=== PATIENT | female | born 1950 | race Caucasian/White ===

== ENCOUNTER 2020-10-26 19:58 | Emergency (ER) | payer MEDICARE, OTHER, SELFPAY ==
[2020-10-26 20:08] VITALS: BP 176/81; PULSE 110; RESP 19; TEMP 36.7; O2SAT 99; BMI 26.5
--- NOTE | 2020-10-26 20:13 | DI.RAD.S_ITS ---
PROCEDURE: XR CHEST 1V INDICATIONS: chest pain TECHNIQUE: One view of the chest was acquired. COMPARISON: [facility], , CHEST 1 VIEW, 07/07/2017, 19:29. FINDINGS: Surgical changes and devices: None. Lungs and pleura: Lungs are clear. No pleural effusions or pneumothorax. Mediastinum: Mediastinal contours appear normal. Heart size is normal. Bones and chest wall: No suspicious bony lesions. Overlying soft tissues appear unremarkable. IMPRESSION: No acute disease. Dictated by: Evens Lin M.D. on 10/26/2020 at 21:12 Approved by: Evens Lin M.D. on 10/26/2020 at 21:12
[2020-10-26 20:33] VITALS: BP 187/89; PULSE 96; RESP 16
[2020-10-26 20:35] VITALS: PULSE 94; RESP 17; O2SAT 99
[2020-10-26 20:38] LABS: Add Manual Diff / Slide Review NO; Basophils Absolute Auto 0 /uL (0-100); Basophils Percent Auto 0.9 % (0-2); Eosinophils Absolute Auto 0 /uL (0-450); Eosinophils Percent Auto 0.4 % (2-4); Hematocrit 39.3 % (36-46); Lymphocytes Absolute Auto 1100 /uL (1100-4500); Lymphocytes Percent Auto 19.6 % (25-40); Mean Corpuscular HGB Conc 33.1 % (30-36); Mean Corpuscular Hemoglobin 29.8 PG (26-34); Mean Corpuscular Volume 90.2 fL (80-100); Monocytes Absolute Auto 600 /uL (0-900); Monocytes Percent Auto 9.9 % (3-14); Neutrophils Absolute Auto 4000 /uL (1500-7000); Neutrophils Percent Auto 69.2 % (50-75); Platelet Count 243 X10^3/uL (150-400); Red Blood Cell Count 4.36 X10^6/uL (4.0-5.2); Red Cell Distribution Width 13.1 % (11.6-14.8); White Blood Cell Count 5.8 X10^3/uL (4.5-11.0)
[2020-10-26 20:48] LABS: Prothrombin Time 11.3 SECONDS (10.1-12.7)
[2020-10-26 20:51] LABS: PTT Partial Thromboplastin Tim 31 SECONDS (26.4-36.2)
[2020-10-26 20:52] LABS: Alanine Aminotransferase 18 IU/L (<35); Albumin 4.2 g/dL (3.5-5.0); Albumin Globulin Ratio 1.4 (1.0-2.8); Alkaline Phosphatase 62 U/L (38-126); Aspartate Aminotransferase 25 IU/L (14-36); BUN Creatinine Ratio 12.5 (6-22); Bilirubin Total 0.5 mg/dL (0.2-1.3); Blood Urea Nitrogen 10 mg/dL (7-17); Calcium 9.5 mg/dL (8.4-10.2); Carbon Dioxide 27 mmol/L (22-32); Chloride 105 mmol/L (98-107); Creatine Kinase 76 U/L (30-135); Estimated Glomerular Filt Rate > 60.0 mL/min (>60); Globulin 2.9 g/dL (1.7-4.1); Glucose 146 mg/dL (80-110); HEMOLYSIS < 15 (0-50); Lipase 202 U/L (23-300); Sodium 137 mmol/L (137-145); Total Protein 7.1 g/dL (6.3-8.2)
[2020-10-26 20:57] LABS: Bacteria Urine None Seen; WBC Urine None Seen (0-5/HPF)
[2020-10-26 20:58] LABS: Appearance Urine UA CLEAR; Bilirubin Urine UA NEGATIVE (NEGATIVE); Color Urine UA YELLOW; Glucose Urine UA NEGATIVE (Negative); Ketones Urine UA NEGATIVE (NEGATIVE); Leukocyte Esterase Urine UA NEGATIVE (NEGATIVE); Nitrite Urine UA NEGATIVE (Negative); Occult Blood Urine UA TRACE-LYSED (Negative); Protein Urine UA NEGATIVE (Negative); Specific Gravity Urine UA <=1.005 (1.000-1.035); Urobilinogen Urine UA 0.2 E.U./dL (0.2)
[2020-10-26 21:00] VITALS: BP 162/75; PULSE 89; RESP 16; O2SAT 99
[2020-10-26 21:04] LABS: Culture Indicated Urine Cult Not Indicated; RBC Urine 0-1/HPF (0-5/HPF); Squamous Epithelial Cell Urine 0-1 /HPF (0-5/HPF)
[2020-10-26 21:04] LABS: Troponin I < 0.012 ng/mL (0.01-0.034)
[2020-10-26 21:31] VITALS: PULSE 84; O2SAT 93
[2020-10-26 22:00] VITALS: O2SAT 97
--- NOTE | 2020-10-26 22:12 | ED.ARRPALP ---
HPI - Arrhythmia/Palpitations General Chief Complaint: Arrhythmia/Palpitations Stated Complaint: shakey, rapid heart rate Time Seen by Provider: 10/26/20 20:33 Source: patient Mode of arrival: Ambulatory Limitations: no limitations History of Present Illness HPI narrative: Patient is a 70-year-old female here for evaluation of palpitations and feeling shaky. She states she was recently seen by her primary provider for the same symptoms that brought her in today. She was given antibiotics for presumed urinary tract infection. States that that did not help her symptoms so she was given a 2nd course of an antibiotic which she describes as Levaquin. She completed the course of this again without any improvement of her symptoms. Patient states these antibiotics or for a presumed urinary tract infection. She does describe off and on occasions which she feels like that her heart is racing. She also describes tingling and shaking in her upper extremities. She has right ear fullness. No cough. No sore throat. No chest pain. No shortness of breath. Related Data Home Medications Medication Instructions Recorded Confirmed omeprazole magnesium [Prilosec OTC] 20 mg PO QDAY #0 07/05/17 07/23/19 estradiol TOPICAL 07/23/19 07/23/19 progesterone micronized 100 mg 100 mg PO QAM 07/23/19 07/23/19 capsule Previous Rx's Medication Instructions Recorded estradiol 0.5 gram VAG DAILY #42.5 gram 07/23/19 Allergies Allergy/AdvReac Type Severity Reaction Status Date / Time acetaminophen [From TYLENOL] Allergy Unknown Unverified 07/23/19 13:56 codeine [CODEINE] Allergy Unknown Unverified 07/23/19 13:56 Penicillins [PENICILLINS] Allergy Unknown Unverified 07/23/19 13:56 SULFA Allergy Unknown Uncoded 07/23/19 13:56 Review of Systems Constitutional Constitutional: Denies fatigue and Denies headache(s) Comments: Shaking Eyes Eyes: Denies change in vision ENT Ears, Nose, Mouth, and Throat: Denies headache(s) Comments: Right ear pain Cardiovascular Cardiovascular: Denies chest pain, Reports rapid heart rate and Denies dyspnea Respiratory Respiratory: Denies cough and Denies dyspnea Gastrointestinal Gastrointestinal: Denies abdominal pain, Denies nausea and Denies vomiting Musculoskeletal Musculoskeletal: Denies arthralgias, Denies myalgias and Reports tingling Integumentary/Breasts Comments: Shaking, tingling Neurologic Neurologic: Denies headache(s) and Reports tingling Endocrine Endocrine: Denies fatigue Hematologic/Lymphatic Hematologic/Lymphatic: Denies easy bleeding and Denies easy bruising Allergic/Immunologic Allergic/Immunologic: Denies urticaria Patient History Medical History Action tremor Atypical chest pain Hypokalemia Palpitations Social History Smoking Status: Never smoker Smoking Status: Never smoker Substance Use Type: does not use Exam Initial Vital Signs Initial Vital Signs: Vital Signs Temperature 98.1 F 10/26/20 20:08 Pulse Rate 110 H 10/26/20 20:08 Respiratory Rate 19 10/26/20 20:08 Blood Pressure 176/81 H 10/26/20 20:08 Pulse Oximetry 99 10/26/20 20:08 Const General: cooperative and comfortable Limitations: mental status not altered HENMT Head: normal to inspection and normocephalic Ears: other (Tympanic membranes bulging bilaterally without erythema) Resp Effort & Inspection: normal respiratory effort Auscultation: clear to auscultation bilaterally Cardio Rate: regular rate Rhythm: regular rhythm GI Inspection: non-distended Palpation: soft Skin Lesions: no lesions Rashes: no rashes Neuro General: patient alert, patient awake and patient oriented x3 Cognition: normal cognition Speech: speech normal Extrem General: capillary refill normal Psych Appearance: grossly normal and well kempt Course Orders Ordered: ED Orders 10/26/20 20:13 XR chest 1V Stat EKG-12 Lead Stat 10/26/20 20:20 Complete Blood Count AUTO DIFF Stat Comprehensive Metabolic Panel Stat Lipase Stat Partial Thromboplastin Time Stat Prothrombin Time INR Stat Troponin & CK Cardiac Panel Stat 10/26/20 20:40 Urinalysis and Microscopic Stat Vital Signs Vital signs: Vital Signs - 8 hr 10/26/20 20:08 10/26/20 20:33 10/26/20 20:35 Temperature 98.1 F Pulse Rate 110 H 96 H 94 H Respiratory Rate 19 16 17 Blood Pressure 176/81 H 187/89 H Pulse Oximetry 99 99 10/26/20 21:00 10/26/20 21:31 10/26/20 22:00 Temperature Pulse Rate 89 84 Respiratory Rate 16 Blood Pressure 162/75 H Pulse Oximetry 99 93 97 MDM - Arrhythmia/Palpitations Lab Data Attestation: I reviewed the patient's lab results. Result diagrams: 10/26/20 20:20 10/26/20 20:20 Labs: Lab Results 10/26/20 10/26/20 10/26/20 Range/Units 20:20 20:20 20:20 WBC 5.8 (4.5-11.0) X10^3/uL RBC 4.36 (4.0-5.2) X10^6/uL Hgb 13.0 (12.0-16.0) g/dL Hct 39.3 (36-46) % MCV 90.2 (80-100) fL MCH 29.8 (26-34) PG MCHC 33.1 (30-36) % RDW 13.1 (11.6-14.8) % Plt Count 243 (150-400) X10^3/uL Neut % (Auto) 69.2 (50-75) % Lymph % (Auto) 19.6 L (25-40) % [place] % (Auto) 9.9 (3-14) % Eos % (Auto) 0.4 L (2-4) % Baso % (Auto) 0.9 (0-2) % Neut # (Auto) 4000 (0859-6104) /uL Lymph # (Auto) 1100 (9364-8016) /uL [place] # (Auto) 600 (0-900) /uL Eos # (Auto) 0 (0-450) /uL Baso # (Auto) 0 (0-100) /uL PT 11.3 (10.1-12.7) SECONDS INR 1.0 (0.9-1.3) APTT 31 (26.4-36.2) SECONDS Sodium 137 (137-145) mmol/L Potassium 4.0 (3.4-5.1) mmol/L Chloride 105 (98-107) mmol/L Carbon Dioxide 27 (22-32) mmol/L BUN 10 (7-17) mg/dL Creatinine 0.80 (0.52-1.04) mg/dL Estimated GFR > 60.0 (>60) mL/min BUN/Creatinine Ratio 12.5 (6-22) Glucose 146 H (80-110) mg/dL Calcium 9.5 (8.4-10.2) mg/dL Total Bilirubin 0.5 (0.2-1.3) mg/dL AST 25 (14-36) IU/L ALT 18 (<35) IU/L Alkaline Phosphatase 62 (38-126) U/L Total Creatine Kinase 76 (30-135) U/L CK-MB (CK-2) TNP CK-MB (CK-2) Rel Index TNP Troponin I < 0.012 (0.01-0.034) ng/mL Total Protein 7.1 (6.3-8.2) g/dL Albumin 4.2 (3.5-5.0) g/dL Globulin 2.9 (1.7-4.1) g/dL Albumin/Globulin Ratio 1.4 (1.0-2.8) Lipase 202 (23-300) U/L Urine Color Urine Appearance Urine pH (4.5-8.0) Ur Specific [place] (1.000-1.035) Urine Protein (Negative) Urine Glucose (UA) (Negative) g/dL Urine Ketones (NEGATIVE) Urine Occult Blood (Negative) Urine Nitrate (Negative) Urine Bilirubin (NEGATIVE) Urine Urobilinogen (0.2) E.U./dL Ur Leukocyte Esterase (NEGATIVE) Urine RBC (0-5/HPF) Urine WBC (0-5/HPF) Ur Squamous Epith Cells (0-5/HPF) Urine Bacteria (None) Ur Culture Indicated? 10/26/20 Range/Units 20:40 WBC (4.5-11.0) X10^3/uL RBC (4.0-5.2) X10^6/uL Hgb (12.0-16.0) g/dL Hct (36-46) % MCV (80-100) fL MCH (26-34) PG MCHC (30-36) % RDW (11.6-14.8) % Plt Count (150-400) X10^3/uL Neut % (Auto) (50-75) % Lymph % (Auto) (25-40) % [place] % (Auto) (3-14) % Eos % (Auto) (2-4) % Baso % (Auto) (0-2) % Neut # (Auto) (0824-0147) /uL Lymph # (Auto) (1366-8514) /uL [place] # (Auto) (0-900) /uL Eos # (Auto) (0-450) /uL Baso # (Auto) (0-100) /uL PT (10.1-12.7) SECONDS INR (0.9-1.3) APTT (26.4-36.2) SECONDS Sodium (137-145) mmol/L Potassium (3.4-5.1) mmol/L Chloride (98-107) mmol/L Carbon Dioxide (22-32) mmol/L BUN (7-17) mg/dL Creatinine (0.52-1.04) mg/dL Estimated GFR (>60) mL/min BUN/Creatinine Ratio (6-22) Glucose (80-110) mg/dL Calcium (8.4-10.2) mg/dL Total Bilirubin (0.2-1.3) mg/dL AST (14-36) IU/L ALT (<35) IU/L Alkaline Phosphatase (38-126) U/L Total Creatine Kinase (30-135) U/L CK-MB (CK-2) CK-MB (CK-2) Rel Index Troponin I (0.01-0.034) ng/mL Total Protein (6.3-8.2) g/dL Albumin (3.5-5.0) g/dL Globulin (1.7-4.1) g/dL Albumin/Globulin Ratio (1.0-2.8) Lipase (23-300) U/L Urine Color Yellow Urine Appearance Clear Urine pH 6.0 (4.5-8.0) Ur Specific [place] <=1.005 (1.000-1.035) Urine Protein Negative (Negative) Urine Glucose (UA) Negative (Negative) g/dL Urine Ketones Negative (NEGATIVE) Urine Occult Blood Trace-lysed (Negative) Urine Nitrate Negative (Negative) Urine Bilirubin Negative (NEGATIVE) Urine Urobilinogen 0.2 (0.2) E.U./dL Ur Leukocyte Esterase Negative (NEGATIVE) Urine RBC 0-1/hpf (0-5/HPF) Urine WBC None seen (0-5/HPF) Ur Squamous Epith Cells 0-1 /hpf (0-5/HPF) Urine Bacteria None seen (None) Ur Culture Indicated? Cult not indicated Imaging Data Chest x-ray: Radiologist's Impresson: [id number] [place] [id number] ReportSigned Patient: Cynthia Samuel DMR#: [id number]: [id number]:[id number]/Sex: 70 / FDate of Service: 10/26/20Loc: EDAccession Number: [id number] Procedure: XR chest 1V Ordering Provider: Shlomo Felix D.O. PROCEDURE: XR CHEST 1V INDICATIONS: chest pain TECHNIQUE: One view of the chest was acquired. COMPARISON: [facility], CHEST 1 VIEW, 07/07/2017, 19:29. FINDINGS: Surgical changes and devices: None. Lungs and pleura: Lungs are clear. No pleural effusions or pneumothorax. Mediastinum: Mediastinal contours appear normal. Heart size is normal. Bones and chest wall: No suspicious bony lesions. Overlying soft tissues appear unremarkable. IMPRESSION: No acute disease. Dictated by: Evens Lin M.D. on 10/26/2020 at 21:12 Approved by: Evens Lin M.D. on 10/26/2020 at 21:12 ECG Data Attestation: I personally reviewed and interpreted this ECG as follows: Prior ECG tracings: not available for review Interpretation: Sinus rhythm Ventricular rate 99 Normal axis Normal QRS Normal QTC Nonspecific ST T wave changes MDM Narrative Medical decision making narrative: Labs are unremarkable, chest x-ray is unremarkable, EKG is unremarkable. Patient has been treated with 2 different antibiotics for what the patient describes urinary tract infection. The 2nd antibiotic which the patient states his Levaquin would treat any potential pneumonia or bacterial upper respiratory infection. She does have bilateral bulging tympanic membranes without any signs of erythema. We did discuss the use of antihistamines to help with this. I feel that we should hold on any further antibiotics for now as I do not have a specific reason for a bacterial infection. Had a discussion with her regarding her palpitations. She states she has not talked with her primary doctor about a Holter monitor. It is somewhat difficult to obtain from the patient with her not the palpitations is related to some of her other symptoms or not. Patient is going to contact her primary doctor to discuss this. She did have multiple labs drawn during her last visit. Patient was concerned about her potassium which was unremarkable today. They are working her up further issues to include Sjogren's syndrome because she is having dry eyes and dry mouth. I feel that we can hold on further workup today from the emergency department. Do not feel there is an emergent condition given the workup done thus far and her history and physical exam. She was given return precautions and follow-up instructions. She expressed understanding and agreement. Discharge Plan Departure Patient Disposition: Home Clinical Impression: Palpitations, Congestion of nasal sinus Instructions: DI for Arrhythmias Activity Restrictions/Additional Instructions: I recommend that you start taking a antihistamine such as Claritin or Amberly or Zyrtec. You can purchase these [id number]. I also recommend that you talk with her primary doctor at your next follow-up visit about a Holter monitor. Return to the emergency department for any new or worsening symptoms Prescriptions: No Action omeprazole magnesium [Prilosec OTC] 20 MG tablet,delayed release (DR/EC) 20 mg PO QDAY Qty: 0 RF: 0 estradiol topical RF: 0 progesterone micronized [Prometrium] 100 mg capsule 100 mg PO QAM RF: 0 estradiol [Estrace] 0.01 % (0.1 mg/gram) cream 0.5 gram VAG DAILY Qty: 42.5 RF: 3 Referrals: Charissa Morales MD [Primary Care Provider] -
== END 2020-10-26 22:30 | disposition home or self-care (01) ==
PROVIDERS: Emergency Provider Emergency Medicine; PCP Family Medicine
DX: R00.2 Palpitations (principal); R07.9 Chest pain, unspecified; R09.81 Nasal congestion
CPT/HCPCS: 36415; 71045; 80053; 81001; 82550; 83690; 84484; 85025; 85610; 85730; 93005; 99283; 99284

== ENCOUNTER → 2020-11-10 09:31 | Outpatient (CLI) | payer MEDICARE, OTHER, SELFPAY ==
--- NOTE | 2020-12-01 10:28 | PM.CARDMON.1 ---
[employer] Report Referral & Results Date Patient Seen: 11/10/20 Requesting provider: Charissa Morales Indication: Palpitations Duration of monitoring (days): 7 Diary information: There was 1 patient triggered event. This event was associated with sinus rhythm only Data: Minimum heart rate identified was 43 beats per minute at 06:58 on 11/13/2020 Maximum sinus heart rate was 125 beats per minute at 08:43 on 11/16/2020 Maximum overall heart rate was 150 beats per minute at 04:35 on 11/16/2020 during a run of SVT Less than 1% of identified beats rather ventricular supraventricular ectopic in origin 3 runs of SVT were identified the fastest being 13 beats at a rate of 150 beats per minute. This was also the longest run. Impression: 7 day patient monitor showing rare PVCs and PACs and rare very very brief runs of SVT as above Clinical correlation suggested
== END ==
PROVIDERS: PCP Family Medicine; Referring Provider Family Medicine; Visit Provider Family Medicine
DX: R00.2 Palpitations (principal)
CPT/HCPCS: 93242; 93244

== ENCOUNTER 2022-02-21 11:36 | Emergency (ER) | payer MEDICARE, OTHER, SELFPAY ==
[2022-02-21 11:41] VITALS: BP 180/81; PULSE 88; RESP 18; TEMP 36.7; O2SAT 99; BMI 23.2
--- NOTE | 2022-02-21 11:52 | DI.RAD.S_ITS ---
PROCEDURE: XR CHEST 1V INDICATIONS: chest pain TECHNIQUE: One view of the chest was acquired. COMPARISON: [facility], , CHEST 1 VIEW, 07/07/2017, 19:29. [facility], , XR CHEST 1V, 10/26/2020, 20:34. FINDINGS: Surgical changes and devices: None. Lungs and pleura: Lungs are clear. No pleural effusions or pneumothorax. Mediastinum: The cardiac contours are within normal limits. The aorta demonstrates calcification and tortuosity. Bones and chest wall: No suspicious bony lesions. Age-appropriate bony degenerative changes are seen. Mild levoconvex scoliotic curvature is noted. Overlying soft tissues appear unremarkable. IMPRESSION: Unremarkable portable chest study for age. Dictated by: John Meyer M.D. on 02/21/2022 at 11:21 Approved by: John Meyer M.D. on 02/21/2022 at 11:22
[2022-02-21 12:26] LABS: Add Manual Diff / Slide Review NO; Basophils Absolute Auto 100 /uL (0-100); Basophils Percent Auto 1.2 % (0-2); Eosinophils Absolute Auto 300 /uL (0-450); Eosinophils Percent Auto 4.1 % (2-4); Hematocrit 37.8 % (36-46); Hemoglobin 12.8 g/dL (12.0-16.0); Lymphocytes Absolute Auto 700 /uL (1100-4500); Lymphocytes Percent Auto 10.4 % (25-40); Mean Corpuscular HGB Conc 33.9 % (30-36); Mean Corpuscular Hemoglobin 30.7 PG (26-34); Mean Corpuscular Volume 90.5 fL (80-100); Monocytes Absolute Auto 500 /uL (0-900); Monocytes Percent Auto 8.1 % (3-14); Neutrophils Absolute Auto 4900 /uL (1500-7000); Neutrophils Percent Auto 76.2 % (50-75); Platelet Count 244 X10^3/uL (150-400); Red Blood Cell Count 4.18 X10^6/uL (4.0-5.2); Red Cell Distribution Width 12.9 % (11.6-14.8); White Blood Cell Count 6.5 X10^3/uL (4.5-11.0)
[2022-02-21 12:30] LABS: Alanine Aminotransferase 13 IU/L (<35); Albumin 4.1 g/dL (3.5-5.0); Albumin Globulin Ratio 1.5 (1.0-2.8); Alkaline Phosphatase 54 U/L (38-126); Aspartate Aminotransferase 23 IU/L (14-36); Bilirubin Total 0.5 mg/dL (0.2-1.3); Blood Urea Nitrogen 14 mg/dL (7-17); Calcium 8.9 mg/dL (8.4-10.2); Carbon Dioxide 22 mmol/L (22-32); Chloride 105 mmol/L (98-107); Creatine Kinase 44 U/L (30-135); Estimated Glomerular Filt Rate > 60 mL/min (>60); Globulin 2.8 g/dL (1.7-4.1); Glucose 124 mg/dL (80-110); HEMOLYSIS < 15 (0-50); Lipase 234 U/L (23-300); Potassium 4.2 mmol/L (3.4-5.1); Sodium 136 mmol/L (137-145); Total Protein 6.9 g/dL (6.3-8.2)
[2022-02-21 12:41] LABS: Troponin I < 0.012 ng/mL (0.01-0.034)
--- NOTE | 2022-02-21 12:59 | ED_ITS ---
HPI - Chest Pain <Boo Gill PA-C - Last Filed: 02/21/22 16:58> General Chief Complaint: Chest Pain Stated Complaint: Chest pain/back pain, tingling in lt arm Time Seen by Provider: 02/21/22 12:09 Mode of arrival: Ambulatory History of Present Illness HPI narrative: 71-year-old female presents to the ED for 1 day of right-sided upper back pain that radiates to the left arm. Patient endorses some tingling in the left arm. Patient states that the pain feels more like a pinched nerve in the back. Patient denies fevers, chills, shortness of breath, chest pain, cough, nasal congestion, nausea, vomiting, lightheadedness, dizziness, syncope. Patient does endorse some intermittent right lower quadrant cramping that has been ongoing for 2 years. Patient states that she has been diagnosed with IBS. Patient also endorses increased belching since this morning, endorses history of GERD, takes Prilosec daily, took a dose of Pepcid AC this morning. States that the abdominal cramping causes her to feel sweaty and had palpitations. Patient was started on metoprolol last week by her PCP for some intermittent SVTs. Related Data Home Medications Medication Instructions Recorded Confirmed omeprazole magnesium 20 mg 20 mg PO QDAY #0 07/05/17 07/23/19 tablet,delayed release (Prilosec OTC) estradiol [Divigel] TOPICAL 07/23/19 07/23/19 progesterone micronized 100 mg 100 mg PO QAM 07/23/19 07/23/19 capsule (Prometrium) Previous Rx's Medication Instructions Recorded estradiol (Estrace) 0.5 gram VAG DAILY #42.5 gram 07/23/19 cyclobenzaprine 10 mg tablet 10 mg PO TID PRN #20 tab 02/21/22 hyoscyamine sulfate 0.125 mg 0.25 mg PO TID-QID PRN #30 tab 02/21/22 tablet (Levsin) Allergies Allergy/AdvReac Type Severity Reaction Status Date / Time acetaminophen [From TYLENOL] Allergy Unknown Verified 02/21/22 13:05 codeine [CODEINE] Allergy Unknown Verified 02/21/22 13:05 Penicillins [PENICILLINS] Allergy Unknown Verified 02/21/22 13:05 SULFA Allergy Unknown Uncoded 02/21/22 13:05 Review of Systems <Boo Gill PA-C - Last Filed: 02/21/22 16:58> Review of Systems ROS Unobtainable: All systems reviewed & are unremarkable except as noted in HPI and below Constitutional Constitutional: Denies chills, Denies fatigue, Denies fever(s), Denies frequent falls, Denies lethargy and Denies weakness Eyes Eyes: Denies change in vision, Denies eye discharge, Denies irritation and Denies loss of vision ENT Ears, Nose, Mouth, and Throat: Denies change in voice, Denies dizziness, Denies neck pain, Denies sore throat and Denies throat swelling Cardiovascular Cardiovascular: Denies chest pain, Denies irregular heart rhythm, Denies lightheadedness, Denies palpitations, Denies dyspnea, Denies dyspnea on exertion and Denies orthopnea Respiratory Respiratory: Denies cough, Denies dyspnea, Denies dyspnea on exertion and Denies wheezing Gastrointestinal Gastrointestinal: Reports belching, Denies change in bowel habits, Reports cramping (RLQ), Denies diarrhea, Denies nausea and Denies vomiting Genitourinary Genitourinary: Denies hematuria, Denies flank pain, Denies urinary incontinence and Denies urinary urgency Musculoskeletal Musculoskeletal: Reports back pain, Denies muscle weakness, Denies neck pain, Denies numbness, Reports radiating pain into limb (L arm) and Denies tingling Integumentary/Breasts Skin/Breast: Denies pruritus, Denies erythema, Denies rash and Denies wounds Neurologic Neurologic: Denies behavioral changes, Denies confusion, Denies dizziness, Denies frequent falls, Denies loss of vision, Denies numbness, Denies tingling and Denies weakness Psychiatric Psychiatric: Denies anxiety, Denies behavioral changes, Denies confusion, Denies depression, Denies homicidal ideation and Denies suicidal ideation Endocrine Endocrine: Denies fatigue, Denies flushing and Denies palpitations Hematologic/Lymphatic Hematologic/Lymphatic: Denies easy bruising Allergic/Immunologic Allergic/Immunologic: Denies urticaria, Denies throat swelling and Denies wheezi ng Patient History <Boo Gill PA-C - Last Filed: 02/21/22 16:58> Medical History Action tremor Atypical chest pain Hypokalemia Palpitations Social History Smoking Status: Never smoker Smoking Status: Never smoker Substance Use Type: does not use Exam <Boo Gill PA-C - Last Filed: 02/21/22 16:58> Initial Vital Signs Initial Vital Signs: Vital Signs Temperature 98.0 F 02/21/22 11:41 Pulse Rate 88 02/21/22 11:41 Respiratory Rate 18 02/21/22 11:41 Blood Pressure 180/81 H 02/21/22 11:41 Pulse Oximetry 99 02/21/22 11:41 Const General: cooperative, healthy appearing and comfortable HENMT Head: normal to inspection Eyes General: Yes appearance normal, both eyes and all related structures Neck Neck: normal visual inspection Chest Chest: normal inspection of the chest Resp Effort & Inspection: normal respiratory effort Auscultation: clear to auscultation bilaterally Cardio Rate: regular rate Rhythm: regular rhythm GI Inspection: normal to inspection Other: Abdomen is soft, nondistended. Mild tenderness to palpation in the right lower quadrant, however distractible. General: No CVA tenderness Back/Spine/Pelvis Back: normal to inspection and back tenderness (Paraspinal tenderness to palpation of the right mid thoracic region) Other: No midline tenderness to palpation Skin General: no rashes or lesions noted Neuro General: patient alert, patient awake and patient oriented x3 Extrem General: normal to inspection, full ROM and capillary refill normal Psych Appearance: grossly normal Mental Status: mental status grossly normal Affect: anxious affect <Rishi Hu DO - Last Filed: 02/24/22 00:42> Initial Vital Signs Initial Vital Signs: Vital Signs Temperature 98.0 F 02/21/22 11:41 Pulse Rate 88 02/21/22 11:41 Respiratory Rate 18 02/21/22 11:41 Blood Pressure 180/81 H 02/21/22 11:41 Pulse Oximetry 99 02/21/22 11:41 Course <Boo Gill PA-C - Last Filed: 02/21/22 16:58> Orders Ordered: Discontinued Medications Al Hydrox/Mg Hydrox/Simethicone 20 ml/ Lidocaine HCl 15 ml 0 ml PO NOW ONE Stop: 02/21/22 12:55 Last Admin: 02/21/22 13:20 Dose: 35 ml Documented by: [facility] Cyclobenzaprine HCl (Cyclobenzaprine 10 Mg Tablet) 10 mg PO NOW ONE Stop: 02/21/22 12:56 Last Admin: 02/21/22 13:21 Dose: 5 mg Documented by: [facility] Hyoscyamine (Hyoscyamine 0.125 Mg Tablet) 0.125 mg PO NOW ONE Stop: 02/21/22 12:55 Last Admin: 02/21/22 13:20 Dose: 0.125 mg Documented by: [facility] Lidocaine (Lidocaine Patch 1 Each Adh..Patch) 1 each TOP NOW ONE Stop: 02/21/22 12:57 Last Admin: 02/21/22 13:21 Dose: 1 each Documented by: [facility] Vital Signs Vital signs: Vital Signs - 8 hr 02/21/22 11:41 02/21/22 13:54 02/21/22 14:33 Temperature 98.0 F Pulse Rate 88 75 Respiratory Rate 18 16 Blood Pressure 180/81 H 155/72 H Pulse Oximetry 99 99 98 02/21/22 14:34 02/21/22 15:00 Temperature Pulse Rate 76 75 Respiratory Rate 24 Blood Pressure 171/79 H 145/78 H Pulse Oximetry 100 98 <Rishi Hu, DO - Last Filed: 02/24/22 00:42> Orders Ordered: Discontinued Medications Al Hydrox/Mg Hydrox/Simethicone 20 ml/ Lidocaine HCl 15 ml 0 ml PO NOW ONE Stop: 02/21/22 12:55 Last Admin: 02/21/22 13:20 Dose: 35 ml Documented by: [facility] Cyclobenzaprine HCl (Cyclobenzaprine 10 Mg Tablet) 10 mg PO NOW ONE Stop: 02/21/22 12:56 Last Admin: 02/21/22 13:21 Dose: 5 mg Documented by: [facility] Hyoscyamine (Hyoscyamine 0.125 Mg Tablet) 0.125 mg PO NOW ONE Stop: 02/21/22 12:55 Last Admin: 02/21/22 13:20 Dose: 0.125 mg Documented by: [facility] Lidocaine (Lidocaine Patch 1 Each Adh..Patch) 1 each TOP NOW ONE Stop: 02/21/22 12:57 Last Admin: 02/21/22 13:21 Dose: 1 each Documented by: [facility] Vital Signs Vital signs: Vital Signs - 8 hr 02/21/22 11:41 02/21/22 13:54 02/21/22 14:33 Temperature 98.0 F Pulse Rate 88 75 Respiratory Rate 18 16 Blood Pressure 180/81 H 155/72 H Pulse Oximetry 99 99 98 02/21/22 14:34 02/21/22 15:00 Temperature Pulse Rate 76 75 Respiratory Rate 24 Blood Pressure 171/79 H 145/78 H Pulse Oximetry 100 98 MDM - Chest Pain <Boo Gill PA-C - Last Filed: 02/21/22 16:58> Medical Records Data Attestation: I reviewed the patient's medical records. Lab Data Attestation: I reviewed the patient's lab results. Lab results narrative: Labs within normal limits Result diagrams: 02/21/22 12:09 02/21/22 12:09 Labs: Lab Results 02/21/22 02/21/22 Range/Units 12:09 12:09 WBC 6.5 (4.5-11.0) X10^3/uL RBC 4.18 (4.0-5.2) X10^6/uL Hgb 12.8 (12.0-16.0) g/dL Hct 37.8 (36-46) % MCV 90.5 (80-100) fL MCH 30.7 (26-34) PG MCHC 33.9 (30-36) % RDW 12.9 (11.6-14.8) % Plt Count 244 (150-400) X10^3/uL Neut % (Auto) 76.2 H (50-75) % Lymph % (Auto) 10.4 L (25-40) % [place] % (Auto) 8.1 (3-14) % Eos % (Auto) 4.1 H (2-4) % Baso % (Auto) 1.2 (0-2) % Neut # (Auto) 4900 (6984-2618) /uL Lymph # (Auto) 700 L (9559-4384) /uL [place] # (Auto) 500 (0-900) /uL Eos # (Auto) 300 (0-450) /uL Baso # (Auto) 100 (0-100) /uL Sodium 136 L (137-145) mmol/L Potassium 4.2 (3.4-5.1) mmol/L Chloride 105 (98-107) mmol/L Carbon Dioxide 22 (22-32) mmol/L BUN 14 (7-17) mg/dL Creatinine 0.70 (0.52-1.04) mg/dL Estimated GFR > 60 (>60) mL/min BUN/Creatinine Ratio 20.0 (6-22) Glucose 124 H (80-110) mg/dL Calcium 8.9 (8.4-10.2) mg/dL Magnesium 2.0 (1.6-2.3) mg/dL Total Bilirubin 0.5 (0.2-1.3) mg/dL AST 23 (14-36) IU/L ALT 13 (<35) IU/L Alkaline Phosphatase 54 (38-126) U/L Total Creatine Kinase 44 (30-135) U/L CK-MB (CK-2) TNP CK-MB (CK-2) Rel Index TNP Troponin I < 0.012 (0.01-0.034) ng/mL Total Protein 6.9 (6.3-8.2) g/dL Albumin 4.1 (3.5-5.0) g/dL Globulin 2.8 (1.7-4.1) g/dL Albumin/Globulin Ratio 1.5 (1.0-2.8) Lipase 234 (23-300) U/L Imaging Data Chest x-ray: Radiologist's Impression: PROCEDURE:? XR CHEST 1V ? INDICATIONS:? chest pain ? TECHNIQUE:? One view of the chest was acquired.? ? COMPARISON:? [facility], CHEST 1 VIEW, 07/07/2017, 19:29.? [facility], XR CHEST 1V, 10/26/2020, 20:34. ? FINDINGS:? ? Surgical changes and devices:? None.? ? Lungs and pleura:? Lungs are clear.? No pleural effusions or pneumothorax.? ? Mediastinum:? The cardiac contours are within normal limits. The aorta demonstrates calcification and tortuosity. ? Bones and chest wall:? No suspicious bony lesions.? Age-appropriate bony degenerative changes are seen.? Mild levoconvex scoliotic curvature is noted. ? ? Overlying soft tissues appear unremarkable.? IMPRESSION:? Unremarkable portable chest study for age. ? ? Dictated by: John Meyer M.D. on 02/21/2022 at 11:21 ? ? Approved by: John Meyer M.D. on 02/21/2022 at 11:22 ? ECG Data Interpretation: Normal sinus rhythm, nonspecific T-wave abnormality in V3, no acute ST changes, no axis deviation MDM Narrative Medical decision making narrative: 71-year-old female presents to the ED for 1 day of right-sided upper back pain that radiates to the left arm. Concern for ACS versus musculoskeletal sprain/strain versus pneumonia versus versus IBS. Will obtain labs, troponin, EKG, chest x-ray. Will give Flexeril, GI cocktail, Levsin, lidocaine patch for symptoms. Will re-evaluate. Labs, chest x-ray, EKG, CT abdomen pelvis did not show any acute findings. There were some incidental findings including a thickened endometrium, possible cervical mass. Discussed findings with patient, suggest follow-up with OBGYN for a pelvic ultrasound. Patient's symptoms improved with medications. return precautions discussed with patient. Patient verbalized understanding. <Rishi Hu, - Last Filed: 02/24/22 00:42> Lab Data Labs: Lab Results 02/21/22 02/21/22 Range/Units 12:09 12:09 WBC 6.5 (4.5-11.0) X10^3/uL RBC 4.18 (4.0-5.2) X10^6/uL Hgb 12.8 (12.0-16.0) g/dL Hct 37.8 (36-46) % MCV 90.5 (80-100) fL MCH 30.7 (26-34) PG MCHC 33.9 (30-36) % RDW 12.9 (11.6-14.8) % Plt Count 244 (150-400) X10^3/uL Neut % (Auto) 76.2 H (50-75) % Lymph % (Auto) 10.4 L (25-40) % [place] % (Auto) 8.1 (3-14) % Eos % (Auto) 4.1 H (2-4) % Baso % (Auto) 1.2 (0-2) % Neut # (Auto) 4900 (3722-5527) /uL Lymph # (Auto) 700 L (6994-7344) /uL [place] # (Auto) 500 (0-900) /uL Eos # (Auto) 300 (0-450) /uL Baso # (Auto) 100 (0-100) /uL Sodium 136 L (137-145) mmol/L Potassium 4.2 (3.4-5.1) mmol/L Chloride 105 (98-107) mmol/L Carbon Dioxide 22 (22-32) mmol/L BUN 14 (7-17) mg/dL Creatinine 0.70 (0.52-1.04) mg/dL Estimated GFR > 60 (>60) mL/min BUN/Creatinine Ratio 20.0 (6-22) Glucose 124 H (80-110) mg/dL Calcium 8.9 (8.4-10.2) mg/dL Magnesium 2.0 (1.6-2.3) mg/dL Total Bilirubin 0.5 (0.2-1.3) mg/dL AST 23 (14-36) IU/L ALT 13 (<35) IU/L Alkaline Phosphatase 54 (38-126) U/L Total Creatine Kinase 44 (30-135) U/L CK-MB (CK-2) TNP CK-MB (CK-2) Rel Index TNP Troponin I < 0.012 (0.01-0.034) ng/mL Total Protein 6.9 (6.3-8.2) g/dL Albumin 4.1 (3.5-5.0) g/dL Globulin 2.8 (1.7-4.1) g/dL Albumin/Globulin Ratio 1.5 (1.0-2.8) Lipase 234 (23-300) U/L Discharge Plan Departure Patient Disposition: Home Clinical Impression: Back pain Instructions: Thoracic Back Pain Activity Restrictions/Additional Instructions: You were evaluated in the ED today for left-sided upper back pain, right-sided abdominal cramping. Your labs, CT abdomen pelvis did not show any acute findings. Your back pain is likely due to a musculoskeletal sprain/strain. Your symptoms improved with Flexeril, lidocaine patch. There were some incidental findings with a possible cervical mass and endometrial thickening of the uterus that warrant a follow-up with an OBGYN for a ultrasound. However, your symptoms today are unlikely to be caused by those findings. Please return to the ED if you have worsening symptoms, chest pain, shortness of breath, worsening abdominal pain. Prescriptions: New hyoscyamine sulfate [Levsin] 0.125 mg tablet 0.25 mg PO TID-QID PRN (Reason: dyspepsia) Qty: 30 0RF cyclobenzaprine 10 mg tablet 10 mg PO TID PRN (Reason: muscle spasm) Qty: 20 0RF No Action omeprazole magnesium [Prilosec OTC] 20 MG tablet,delayed release (DR/EC) 20 mg PO QDAY Qty: 0 0RF estradiol topical 0RF progesterone micronized [Prometrium] 100 mg capsule 100 mg PO QAM 0RF estradiol [Estrace] 0.01 % (0.1 mg/gram) cream 0.5 gram VAG DAILY Qty: 42.5 3RF Rx Instructions: 0.5gm daily for 14 days and then twice a weeek Referrals: Adrian Amaral MD [Primary Care Provider] - <Rishi Hu DO - Last Filed: 02/24/22 00:42> Cosign ED Attending Ariaature Attestation: I was immediately available in the department for consultation. Documentation has been reviewed. I agree with assessment and plan.
[2022-02-21] MEDS: MAG HYDROX/ALUMINUM/SIMETH SUS 20 ML, LIDOCAINE VISCOUS 2% 15 ML PO (13:20)
[2022-02-21] MEDS: HYOSCYAMINE 0.125 MG TABLET PO (13:20)
[2022-02-21] MEDS: LIDOCAINE PATCH 1 EACH ADH..PATCH TOP (13:21)
[2022-02-21] MEDS: CYCLOBENZAPRINE 10 MG TABLET PO (13:21)
[2022-02-21 13:54] VITALS: BP 155/72; PULSE 75; RESP 16; O2SAT 99
--- NOTE | 2022-02-21 14:01 | DI.CT.S_ITS ---
PROCEDURE: CT ABDOMEN PELVIS W CON INDICATIONS: RLQ pain TECHNIQUE: After the administration of intravenous contrast, axial sections acquired from the lung bases to the pubic symphysis. Coronal and sagittal reformats were performed. For radiation dose reduction, the following was used: automated exposure control, adjustment of mA and/or kV according to patient size. COMPARISON: None. FINDINGS: Image quality: Excellent. Lung bases: Unremarkable. Heart: No significant findings. ABDOMEN: Liver: Unremarkable. Gallbladder: The gallbladder is not visualized and may be surgically absent. Biliary ducts: Unremarkable. Pancreas: Unremarkable. Spleen: Unremarkable. Adrenal Glands: Unremarkable. Kidneys and Ureters: Unremarkable. Stomach and Bowel: Stomach, small bowel loops, and colon are unremarkable. The appendix is thin walled and gas filled. Peritoneum: No abnormal intraperitoneal fluid. No free air. Ventral Wall: No hernias. Abdominal Nodes: No retroperitoneal or mesenteric adenopathy by size criteria. Vessels: Aorta and inferior vena cava are normal in size. PELVIS: Pelvic Organs: Multiple enhancing fibroids are noted within the uterine fundus. The endometrium appears thickened measuring up to 10 mm in diameter which is greater than expected in a postmenopausal female. There is a questionable cervical mass which is incompletely characterized on CT. The ovaries are grossly unremarkable. Bladder: Unremarkable. Pelvic Nodes: No enlarged lymph nodes. Miscellaneous: No hernias are seen. Bones: Unremarkable. IMPRESSION: 1. No acute intra-abdominal findings. Normal appendix. 2. Fibroid uterus and questionable cervical mass which is incompletely characterized on CT. Differential considerations include uterine prolapse. If further characterization is warranted, pelvic ultrasound is recommended. 3. Questionable endometrial thickening measuring up to 10 mm in diameter on sagittal view. Pelvic ultrasound recommended to further characterize this finding. Dictated by: Trudy Koo M.D. on 02/21/2022 at 14:38 Approved by: Trudy Koo M.D. on 02/21/2022 at 14:44
[2022-02-21 14:33] VITALS: O2SAT 98
[2022-02-21 14:34] VITALS: BP 171/79; PULSE 76; O2SAT 100
[2022-02-21 15:00] VITALS: BP 145/78; PULSE 75; RESP 24; O2SAT 98
== END 2022-02-21 15:10 | disposition home or self-care (01) ==
PROVIDERS: Emergency Medicine; Emergency Provider Student in an Organized Health Care Education/Training Program; PCP Family Medicine
DX: M54.6 Pain in thoracic spine (principal)
CPT/HCPCS: 36415; 71045; 74177; 80053; 82550; 83690; 83735; 84484; 85025; 93005; 99284; Q9967

== ENCOUNTER → 2023-11-14 14:20 | Outpatient (ROUT) | payer MEDICARE, OTHER, SELFPAY ==
[2023-11-14 14:47] LABS: Appearance Urine UA CLEAR; Bilirubin Urine UA NEGATIVE (NEGATIVE); Color Urine UA YELLOW; Glucose Urine UA NEGATIVE (Negative); Ketones Urine UA NEGATIVE (NEGATIVE); Leukocyte Esterase Urine UA NEGATIVE (NEGATIVE); Nitrite Urine UA NEGATIVE (Negative); Occult Blood Urine UA NEGATIVE (Negative); Protein Urine UA NEGATIVE (Negative); Urobilinogen Urine UA 0.2 E.U./dL (0.2)
[2023-11-14 14:58] LABS: Bacteria Urine None Seen; Culture Indicated Urine Cult Not Indicated; RBC Urine 0-1/HPF (0-5/HPF); Squamous Epithelial Cell Urine 0-1 /HPF (0-5/HPF); WBC Urine None Seen (0-5/HPF)
== END ==
PROVIDERS: PCP Family Medicine; Visit Provider Registered Nurse
DX: N30.00 Acute cystitis without hematuria (principal)
CPT/HCPCS: 81001

== ENCOUNTER → 2024-02-18 14:42 | Outpatient (CLI) | payer MEDICARE, OTHER, SELFPAY ==
--- NOTE | 2024-02-18 14:45 | DI.US.S_ITS ---
PROCEDURE: US PELVIC COMPLETE INDICATIONS: ONE EPISODE POST MENOPAUSAL SPOTTING TECHNIQUE: Real-time scanning was performed of the pelvic organs, with image documentation. Additional endovaginal scanning was necessary due to incomplete visualization of the adnexal and endometrial structures by transabdominal scanning. COMPARISON: [facility], CT, CT ABDOMEN PELVIS W CON, 02/21/2022, 14:10. FINDINGS: Uterus: Uterus is retroverted and normal in size at 7.8 x 6.9 x 4.6 cm. The myometrium is homogeneous. The endometrium measures 9 mm combined thickness. Right anterior intramural fibroid measuring 3.8 x 3.3 x 2.6 cm. Cervix is within normal limits. Ovaries: Ovaries are not seen. Other: No pathologic free abdominal or pelvic fluid. IMPRESSION: 1. Endometrium measures 9 mm. Recommend endometrial biopsy in this postmenopausal patient with bleeding. 2. Intramural fibroid measuring 3 cm. 3. Ovaries are not seen. We strive to produce accurate, complete, and clear reports of imaging services. To assist us in improving patient care, this report was composed using standard report templates and voice recognition software. Therefore, it may contain abnormal punctuation, insertions and/or omissions. Occasional wrong-word or sound-alike substitutions may occur. Though we review the report and make efforts to correct it, we do recommend that the report be read carefully in proper context to recognize any text inaccuracies. Dictated by: Alec Stuart M.D. on 02/18/2024 at 21:52 Approved by: Alec Stuart M.D. on 02/18/2024 at 21:54
== END ==
PROVIDERS: PCP Family Medicine; Referring Provider Specialist; Visit Provider Specialist
DX: D25.1 Intramural leiomyoma of uterus (principal); N93.9 Abnormal uterine and vaginal bleeding, unspecified
CPT/HCPCS: 76830; 76856